=== PATIENT | female | born 1965 ===

== ENCOUNTER → 2017-04-15 | Outpatient (CLI) | payer SELFPAY | LOC: PREOP 05:35 | PROVIDERS: ATTEND Surgery | DX: Z01.818 Encounter for other preprocedural examination (principal); K21.9 Gastro-esophageal reflux disease without esophagitis; K92.1 Melena ==

== ENCOUNTER → 2017-05-21 | Outpatient (CLI) | payer SELFPAY | LOC: PREOP 05:55 | PROVIDERS: ATTEND Surgery | DX: Z01.818 Encounter for other preprocedural examination (principal); K92.1 Melena; K21.9 Gastro-esophageal reflux disease without esophagitis ==